=== PATIENT | male | born 2000 | race Caucasian/White ===

== ENCOUNTER 2024-07-25 05:46 | Emergency (ER) | payer OTHER ==
[~2024-07-25] VITALS: Ht 185.4 cm; Wt 109.8 kg
[2024-07-25] MEDS ORDERED: KETOROLAC TROMETHAMINE 60 MG/2 ML VIAL IM ONE (06:15)
[2024-07-25 07:05] VITALS: BP 130/90
== END 2024-07-25 07:18 | disposition home or self-care (01) ==
LOC: ED 05:46
DX: G43.909 Migraine, unspecified, not intractable, without status migrainosus (principal)
CPT/HCPCS: 96372; 99283; J1885